=== PATIENT | female | born 1985 | race Caucasian/White ===

== ENCOUNTER 2017-11-25 15:11 | Day surgery (SDC) | payer BC ==
[~2017-11-25 15:11] MED LIST: Lidocaine 1% PF 5 ML VIAL ONE; PROPOFOL 200 MG/20 ML VIAL ONE
[2017-11-25 16:09] LABS: #Eosinphils 0.1 thou/uL (0.0-0.7); #Lymphocytes 2.1 thou/uL (1.20-3.40); #Monocytes 0.5 thou/uL (0.11-0.59); #Neutrophils 4.8 thou/uL (1.40-6.50); %Basophils 0.2 % (0.0-1.0); %Eosinophils 0.9 % (0.0-10.0); %Lymphocytes 28.2 % (21.0-51.0); %Monocytes 6.2 % (0.0-10.0); %Neutrophils 64.5 % (42.0-75.0); Mean Corpuscular HGB CONC 32.5 g/dL (32.0-36.0); Mean Corpuscular Hemoglobin 30.9 pg (27.0-31.0); Mean Corpuscular Volume 95.2 fL (78.0-98.0); Mean Platelet Volume 7.2 fL (7.4-10.4); Platelet Count 265 thou/uL (130-400); RBC Distribution Width 10.8 % (11.5-14.5); White Blood Cell (WBC) Count 7.5 thou/uL (4.8-10.8)
[2017-11-25] MEDS ORDERED: Midazolam HCl 2 mg/2 ml Vial ONE ×2 (17:50→19:14)
[2017-11-25] MEDS ORDERED: Ferric Subsulfate 8 ML BOT ONE (19:11)
[2017-11-25] MEDS ORDERED: Lidocaine 1% w/Epinephrine 1:100K 30 ML VIAL ONE (19:11)
[2017-11-25] MEDS ORDERED: Propofol 500 MG/50 ML VIAL ONE (19:14)
[2017-11-25] MEDS ORDERED: Fentanyl 100 MCG/2 ML VIAL ONE (19:14)
[2017-11-25] MEDS ORDERED: CEFAZOLIN/Water 2 GM/20 ML SYRINGE ONE (19:16)
[2017-11-25] MEDS ORDERED: Ibuprofen 800 MG TAB PO SCH (20:30)
--- NOTE | 2017-11-26 00:59 | OP ---
DATE OF PROCEDURE: 11/25/2017 POSTOPERATIVE DIAGNOSIS: Preoperative bleeding after LEEP procedure. SURGEON: Lamin Fam D.O. ADULT EDUCATION TEACHER: Marta Hernandes MS-III. ANESTHESIA: IV sedation per Dr. Lara. COMPLICATIONS: None. ESTIMATED BLOOD LOSS: Less than 5 mL. PROCEDURES PERFORMED: Cautery of the cervix. PROCEDURE DETAILS: The patient was taken back to the OR with IV fluids running. Once she was in the OR, IV sedation was obtained, and the patient was asleep, the patient was placed in dorsal lithotomy position using candy cane stirrups and was prepped in the normal fashion for vaginal surgery. A coated operative speculum was placed into the vagina and the cervix was identified. Multiple small areas of bleeding were noted along the healing LEEP bed of the cervix. A rollerball cautery was used to achieve hemostasis of these bleeding areas. The entire LEEP bed was cauterized. A thin layer of Monsel's paste was placed over the cauterized area. There were no areas of bleeding noted at the end of the case and noted the start of the procedure, the bladder was drained with a red rubber catheter angled at approximately 50 mL of urine. The patient tolerated the procedure well, was cleaned, dried, taken to recovery room in good condition. CASPER
== END 2017-11-25 20:50 | disposition home or self-care (01) ==
LOC: SDC 15:11
PROVIDERS: ATTEND Obstetrics & Gynecology
PROC: 0W3R7ZZ Control Bleeding in Genitourinary Tract, Via Natural or Artificial Opening (ICD-10-PCS; principal; 2017-11-25)
DX: N99.820 Postprocedural hemorrhage of a genitourinary system organ or structure following a genitourinary system procedure (principal); Z79.899 Other long term (current) drug therapy
CPT/HCPCS: 36415; 85025; 86850; 86900; 86901; J2001; J2250; J2704; J3010

== ENCOUNTER 2019-04-22 20:51 | Day surgery (SDC) | payer BC ==
[2019-04-22] MEDS ORDERED: hydrALAZINE 20 MG/ML VIAL SLOW IVP PRN (23:36)
--- NOTE | 2019-04-22 23:38 | PDOC.LDHP ---
Labor and Delivery H&P Chief complaint: contractions HPI: 33 y/o at 37w0d, patient of Dr. Fam, presents with ctx. Denies VB, LOF, decreased FM or other concerns. ROS neg for HEENT, CV, pulm, GI, , neuro, psych, skin, musculoskeletal, or constitutional symptoms other than mentioned above. OB History Details: 2 prior SVDs Past Medical History: None Current medications: pre- vitamins Previous surgical history: other (LEEP procedure) Allergies/Adverse Reactions: Allergies Allergy/AdvReac Type Severity Reaction Status Date / Time No Known Allergies Allergy Verified 04/12/14 18:32 Social history: none - Physical Exam Vital signs reviewed and normal: yes General: NAD, resting Lungs: nonlabored breathing Abdomen: gravid Extremeties: no edema FHT: category 1 (130s, mod variability, + accels, no decels) [place] contractions every: 3-5 mins - Vaginal Exam cm dilated: 1 Effacement: 90% Station: -1 - Assessment 33 y/o at 37w0d with no e/o active labor. status reassuring with reactive NST. - Plan -: D/c home with precautions. Advised to keep appointment for tomorrow.
== END 2019-04-22 23:45 | disposition home or self-care (01) ==
LOC: L&D/OP 20:51
PROVIDERS: ATTEND Obstetrics & Gynecology
DX: O47.1 False labor at or after 37 completed weeks of gestation (principal); Z3A.37 37 weeks gestation of pregnancy
CPT/HCPCS: 99282

== ENCOUNTER 2019-05-04 07:02 | Inpatient (IN) | payer BC ==
[2019-05-04 08:09] VITALS: BMI 24.3
[2019-05-04] MEDS ORDERED: NS / Oxytocin 40 units/1000ml 1,000 ML IV PRN (08:28)
[2019-05-04] MEDS ORDERED: Ibuprofen 800 MG TAB PO PRN (08:28)
[2019-05-04] MEDS ORDERED: Promethazine HCl 25 MG/ML VIAL IM PRN ×2 (08:28→11:08)
[2019-05-04] MEDS ORDERED: Lidocaine 1% (PF) 30 ML VIAL SC PRN (08:28)
[2019-05-04] MEDS ORDERED: hydrALAZINE 20 MG/ML VIAL SLOW IVP PRN ×2 (08:28→15:00)
[2019-05-04] MEDS ORDERED: HYDROcodone/Acetaminophen 5/325 mg Tablet PO PRN ×4 (08:28→15:00)
[2019-05-04] MEDS ORDERED: Ondansetron PF 4 MG/2 ML Vial IVP PRN ×3 (08:28→15:00)
[2019-05-04] MEDS ORDERED: Lactated Ringer's 1,000 ML IV SCH (08:30)
[2019-05-04] MEDS ORDERED: NS w/ Oxytocin 10 units 500 ML IV SCH ×2 (08:30)
--- NOTE | 2019-05-04 08:35 | PDOC.LDHP ---
Labor and Delivery H&P Chief complaint: contractions HPI: Pt is a who presents with regular, painful ctx since 0400 this AM. Current gestational age (weeks): 38 Due date: 05/13/19 Dating criteria: last menstrual period, first trimester ultrasound Grav: 3 Para: 2 OB History Details: x 2 Current complications: none Abnormal US findings: No Current medications: pre-audelia vitamins Previous surgical history: other (LEEP) Allergies/Adverse Reactions: Allergies Allergy/AdvReac Type Severity Reaction Status Date / Time No Known Allergies Allergy Verified 05/04/19 08:07 Social history: none - Physical Exam Vital signs reviewed and normal: yes General: breathing through contractions Lungs: nonlabored breathing FHT: category 1 [place] contractions every: 5 - Vaginal Exam cm dilated: 2 Effacement: 100% - OB Labs Blood type: O RH: positive Antibody Screen: negative HIV: negative RPR: negative HEPSAg: negative 1 hour GCT: negative GBS: negative Urine drug screen: negative Rubella: immune - Assessment L&D Assessment: term patient in labor - Plan Plan: admit to L&D, labor augmentation if indicated, informed consent obtained, anesthesia consult for pain management -: A/P: 33yo presents in early labor. Discussed active management of labor and epidural at patient request.
[2019-05-04] MEDS ORDERED: Bupivacaine/Epinephrine 0.25% 30 ML VIAL ONE (09:11)
[2019-05-04 09:24] LABS: Hemoglobin 12.1 g/dL (12.0-16.0); Mean Corpuscular HGB CONC 35.5 g/dL (32.0-36.0); Mean Corpuscular Hemoglobin 32.7 pg (27.0-31.0); Mean Platelet Volume 7.8 fL (7.4-10.4); Platelet Count 214 thou/uL (130-400); RBC Distribution Width 13.6 % (11.5-14.5); Red Blood Cell (RBC) Count 3.71 mill/uL (4.20-5.40); White Blood Cell (WBC) Count 9.2 thou/uL (4.8-10.8)
[2019-05-04] MEDS ORDERED: Fentanyl 4 mcg/Bup 0.1% Cadd 100 ML ONE (09:30)
[2019-05-04 10:20] LABS: HBSAg Index 0.13 S/CO (0-0.99); Hep B Surf Ag Non-Reactive S/CO (NonReactive)
--- NOTE | 2019-05-04 10:27 | PDOC.LDPN ---
Labor & Delivery Progress Note - Subjective Subjective: painful contractions - Objective Vital signs reviewed and normal: yes General: breathing through contractions Dilation: 2 Effacement: 100% Station: 0 FHT: early decelerations AROM: clear fluid - Assessment (1) Active labor at term Code(s): [id number] - Current Visit: Yes Status: Acute Plan: continue plan of care -: AROM w clear fluid, requests epidural.
[2019-05-04] MEDS ORDERED: Naloxone HCl 0.4 mg/ml Vial IVP PRN ×2 (11:08)
[2019-05-04] MEDS ORDERED: Acetaminophen 325 MG TAB PO PRN (11:08)
[2019-05-04] MEDS ORDERED: EPHEDRINE 25 MG/5 ML SYRINGE SLOW IVP PRN (11:08)
[2019-05-04] MEDS ORDERED: diphenhydrAMINE 50 MG/ML VIAL IVP PRN (11:08)
[2019-05-04] MEDS ORDERED: Lactated Ringer's 500 ML IV PRN (11:08)
[2019-05-04] MEDS ORDERED: Communication Order-Pharmacy FS SCH (11:15)
[2019-05-04] MEDS ORDERED: Fentanyl 4 mcg/Bupivacaine 0.1% Cassette 100 ML EPIDURAL SCH (11:15)
[2019-05-04 12:03] LABS: Syphilis Antibody Nonreactive (Nonreactive); Syphilis Antibody Index 0.04 S/CO (<1.00 Non-Reactive)
--- NOTE | 2019-05-04 13:01 | PDOC.OPDEL ---
OB Operative/Delivery Note Delivery Dr/Surgeon: Sarwat Pre-Delivery Diagnosis: active labor Weeks gestation: 38 Anesthesia: epidural - Findings A Sex: female - 1 min: 9 - 5 min: 9 - Additional Findings/Plan Placenta delivered: spontaneous Repaired Obstetrical Laceration: 1st degree Estimated blood loss: 300ml Post delivery plan: routine recovery
[2019-05-04] MEDS ORDERED: Bisacodyl 10 MG SUPP PR PRN (15:00)
[2019-05-04] MEDS ORDERED: Preparation H Ointment 28 GM TUBE PR PRN (15:00)
[2019-05-04] MEDS ORDERED: Milk Of Magnesia 30 ML UDCUP PO PRN (15:00)
[2019-05-04] MEDS ORDERED: diphenhydrAMINE 25 MG CAP PO PRN (15:00)
[2019-05-04] MEDS ORDERED: Lanolin Ointment 7 GM TUBE TOP PRN (15:00)
[2019-05-04] MEDS ORDERED: NS / Oxytocin 40 units/1000ml 1,000 ML IV SCH (15:00)
[2019-05-04] MEDS ORDERED: Benzocaine-Menthol 82.5 ML CAN TOP PRN (15:00)
[2019-05-04] MEDS: Ferrous Sulfate 325 MG TAB PO SCH (16:27)
[2019-05-04] MEDS: Ibuprofen 800 MG TAB PO SCH (20:10)
[2019-05-04] MEDS: Docusate Calcium (SURFAK) 240 MG CAP PO SCH (20:10)
[2019-05-05] MEDS: Ibuprofen 800 MG TAB PO SCH ×2 (05:43→14:18)
[2019-05-05] MEDS ORDERED: Prenatal Vitamin 1 TAB PO SCH (09:00)
[2019-05-05] MEDS: Docusate Calcium (SURFAK) 240 MG CAP PO SCH (09:23)
[2019-05-05] MEDS: Ferrous Sulfate 325 MG TAB PO SCH (09:24)
[2019-05-05 11:56] VITALS: BP 108/63; TEMP 98.3
== END 2019-05-05 15:41 | disposition home or self-care (01) | DRG 807 ==
LOC: L&D/OP 07:02 → L&D 10:00 → 3SW 15:21
PROVIDERS: ADMIT Obstetrics & Gynecology; ATTEND Obstetrics & Gynecology
PROC: 10E0XZZ Delivery of Products of Conception, External Approach (ICD-10-PCS; principal; 2019-05-04)
PROC: 10907ZC Drainage of Amniotic Fluid, Therapeutic from Products of Conception, Via Natural or Artificial Opening (ICD-10-PCS; 2019-05-04)
DX: O70.0 First degree perineal laceration during delivery (principal); Z37.0 Single live birth; Z3A.38 38 weeks gestation of pregnancy
CPT/HCPCS: 36415; 51702; 85027; 86780; 86850; 86900; 86901; 87340; 99285

== ENCOUNTER 2022-03-03 13:18 | Outpatient (CLI) | payer BC | END 2022-03-03 13:19 | disposition home or self-care (01) | LOC: RAD 13:18 | PROVIDERS: ATTEND Obstetrics & Gynecology | DX: Z30.431 Encounter for routine checking of intrauterine contraceptive device (principal); Z97.5 Presence of (intrauterine) contraceptive device | CPT/HCPCS: 74018 ==